=== PATIENT | male | born 1955 | race Caucasian/White ===

== ENCOUNTER 2022-08-27 11:41 | Day surgery (SDC) | payer OTHER ==
[~2022-08-27] VITALS: Ht 182.9 cm; Wt 65.9 kg
[2022-08-27 12:05] VITALS: BP 138/83
[2022-08-27] MEDS ORDERED: LISI40TA13 PO (13:08)
[2022-08-27] MEDS ORDERED: ASPI-1265 PO (13:08)
[2022-08-27] MEDS ORDERED: MULT-1085 PO (13:09)
[2022-08-27] MEDS ORDERED: FENTANYL CITRATE/PF 50 MCG/1 ML VIAL ONE (13:54)
[2022-08-27] MEDS ORDERED: diphenhydrAMINE 50 mg/ml inj ONE (13:54)
[2022-08-27] MEDS ORDERED: MIDAZolam 1 MG/ML 5ML VIAL ONE ×2 (13:54)
[2022-08-27] MEDS ORDERED: glucagon, human recombinant 1mg kit ONE ×3 (14:19→14:48)
[2022-08-27] MEDS ORDERED: ondansetron/PF 4mg/2ml inj ONE (14:45)
[2022-08-27 15:00] VITALS: BP_SYST 115; BP_SYST 118; BP_DIAS 70; BP_DIAS 75
[2022-08-27 15:10] VITALS: BP 113/79
[2022-08-27 15:20] VITALS: BP 116/77
== END 2022-08-27 15:30 | disposition home or self-care (01) ==
LOC: GI LAB 11:41
PROVIDERS: ATTEND Internal Medicine Gastroenterology
DX: Z12.11 Encounter for screening for malignant neoplasm of colon (principal); D12.0 Benign neoplasm of cecum; D12.2 Benign neoplasm of ascending colon; K57.30 Diverticulosis of large intestine without perforation or abscess without bleeding; K64.8 Other hemorrhoids
CPT/HCPCS: 45381; 45385; 99153; G0500; J1610; J2250; J2405; J3010; J7030; Z7512; 45335; 45382; 99152; A4620; C1889; J1200